=== PATIENT | male | born 1955 | race Native Hawaiian/Other Pacific Islander ===

== ENCOUNTER 2022-11-03 09:15 | Outpatient (CLI) | payer MEDICARE, MEDICAID ==
--- NOTE | 2022-11-03 12:24 | XRAY Report ---
PROCEDURE: Hips 2V BILAT INDICATIONS: HIP PAIN LEFT CHRONIC TECHNIQUE: 2 views of the hips were acquired. COMPARISON: None. FINDINGS: Bones: Mild to moderate bilateral arthrosis. No displaced fracture or dislocation. There are small os sified bodies seen in the superior joint space on the right. No displaced fracture or dislocation. Cee mbosacral degenerative changes also present. Soft tissues: No significant calcifications. IMPRESSION: Mild to moderate arthrosis as above. If there is high concern for further derangement, consider MRI e valuation. Reviewed by: Luciano Douglas MD on 11/03/2022 12:23 PM PDT Approved by: Luciano Douglas MD on 11/03/2022 12:23 PM PDT Station ID: [id number]
== END 2022-11-03 09:30 | disposition home or self-care (01) ==
LOC: DI.N 09:15
PROVIDERS: ATTEND Physician Assistant Medical
DX: M16.0 Bilateral primary osteoarthritis of hip (principal)

== ENCOUNTER 2023-04-02 10:34 | Outpatient (CLI) | payer MEDICARE, MEDICAID ==
[2023-04-02 10:47] LABS: BASOPHILS # (AUTO) 0.1 10^3/uL (0.0-0.1); BASOPHILS % (AUTO) 1.2 %; EOSINOPHILS # (AUTO) 0.1 10^3/uL (0.0-0.7); EOSINOPHILS % (AUTO) 1.5 %; HGB - HEMOGLOBIN 15.6 g/dL (14.0-18.0); LYMPHOCYTES # (AUTO) 1.4 10^3/uL (1.5-3.5); LYMPHOCYTES % (AUTO) 23.9 %; MEAN CORPUSCULAR HEMOGLOBIN 29.7 pg (27.0-31.0); MEAN CORPUSCULAR HGB CONC 33.2 g/dL (32.0-36.0); MEAN CORPUSCULAR VOLUME 89.5 fL (80.0-94.0); MONOCYTES # (AUTO) 0.6 10^3/uL (0.0-1.0); MONOCYTES % (AUTO) 10.5 %; NEUTROPHILS # (AUTO) 3.7 10^3/uL (1.5-6.6); NEUTROPHILS % (AUTO) 62.6 %; PLT - PLATELET COUNT 325 10^3/uL (130-450); RED BLOOD COUNT 5.25 10^6/uL (4.70-6.10); RED CELL DISTRIBUTION WIDTH 13.9 % (12.0-15.0); WHITE BLOOD COUNT 5.9 x10^3/uL (4.8-10.8)
[2023-04-02 11:04] LABS: ALBUMIN 4.6 g/dL (3.2-5.5); ALBUMIN/GLOBULIN RATIO 1.4 (1.0-2.2); ALKALINE PHOSPHATASE 64 IU/L (42-121); ALT ALANINE AMINOTRANSFERASE 17 IU/L (10-60); AST ASPARTATE AMINOTRANSFERASE 18 IU/L (10-42); BILIRUBIN,TOTAL 0.5 mg/dL (0.2-1.0); BUN - BLOOD UREA NITROGEN 20 mg/dL (6-20); CALCIUM 9.9 mg/dL (8.5-10.3); CARBON DIOXIDE - CO2 32 mmol/L (21-32); CHLORIDE 99 mmol/L (101-111); CHOL/HDL RATIO 5.8 (<5.0); CHOLESTEROL 325 mg/dL; CREATININE 0.9 mg/dL (0.6-1.3); GFR - MDRD 85 (>89); GLUCOSE 97 mg/dL (74-104); HDL CHOLESTEROL 56 mg/dL; LDL CHOLESTEROL,CALCULATED 227 mg/dL; LDL/HDL RATIO 4.1 (<3.6); POTASSIUM 4.5 mmol/L (3.5-4.5); SODIUM 135 mmol/L (135-145); TRIGLYCERIDES 212 mg/dL (48-352); VLDL CHOLESTEROL 42 mg/dL
[2023-04-02 11:44] LABS: THYROID STIMULATING HORMONE 58.19 uIU/mL (0.34-5.60)
--- NOTE | 2023-04-02 19:20 | XRAY Report ---
PROCEDURE: Knee 4 View RT INDICATIONS: KNEE PAIN RIGHT,HIP PAIN LEFT TECHNIQUE: 4 views of the knee(s) were acquired. COMPARISON: None. FINDINGS: Bones: Single screw transfixing the proximal tibial metadiaphysis is intact with no perihardware tam ency to suggest hardware loosening. Alignment is anatomic. Mild tricompartmental joint space narrowin g and juxta-articular osteophytosis. Chondrocalcinosis in the lateral compartment. No fractures or di slocations. No suspicious bony lesions. Limited AP view of the left knee demonstrate mild medial compartment joint space narrowing and questi onable chondrocalcinosis. Soft tissues: No knee joint effusion. No suspicious soft tissue calcifications or masses. IMPRESSION: 1. No acute fracture or dislocation. 2. Single screw transfixing the proximal tibial metadiaphysis is intact without complication. 3. Mild tricompartmental osteoarthritis. Lateral compartment chondrocalcinosis. Reviewed by: Veronica Parra MD on 04/02/2023 7:18 PM PDT Approved by: Veronica Parra MD on 04/02/2023 7:18 PM PDT Station ID: [id number]
--- NOTE | 2023-04-02 19:24 | XRAY Report ---
PROCEDURE: Hip w/Pelvis 2-3V LT INDICATIONS: KNEE PAIN RIGHT,HIP PAIN LEFT TECHNIQUE: AP pelvis with lateral view(s) of the left hip(s). COMPARISON: None. Hip radiograph on November 03, 2022 FINDINGS: Bones: No fractures or dislocations. Mild to moderate bilateral hip joint space narrowing and juxta articular osteophytosis. No suspicious bony lesions. Mild degenerative changes of the lower lumbar spine. Soft tissues: No suspicious soft tissue calcifications or masses. IMPRESSION: 1. No acute fracture or dislocation. If there is high clinical suspicion for a radiographically occul t fracture, consider CT or MRI for further evaluation. 2. Mild to moderate bilateral hip osteoarthritis, similar to prior dated November 03, 2022. Reviewed by: Veronica Parra MD on 04/02/2023 7:23 PM PDT Approved by: Veronica Parra MD on 04/02/2023 7:23 PM PDT Station ID: [id number]
== END 2023-04-02 10:35 | disposition home or self-care (01) ==
LOC: DI 10:34
PROVIDERS: ATTEND Physician Assistant
DX: M16.0 Bilateral primary osteoarthritis of hip (principal); M17.11 Unilateral primary osteoarthritis, right knee; Z51.81 Encounter for therapeutic drug level monitoring; R03.0 Elevated blood-pressure reading, without diagnosis of hypertension; Z12.5 Encounter for screening for malignant neoplasm of prostate
CPT/HCPCS: 36415; 73502; 73564; 80053; 80061; 84439; 84443; 85025; G0103; 83721; 84153

== ENCOUNTER 2023-04-15 10:52 | Outpatient (CLI) | payer MEDICARE, MEDICAID ==
--- NOTE | 2023-04-15 19:55 | CT Report ---
PROCEDURE: Low Dose Lung Cancer Screen INDICATIONS: NICOTINE DEPENDENCE TECHNIQUE: A CT scan of the chest was performed. Intravenous contrast media was not administered. Images were re corded and evaluated at appropriate window settings. Reformats: axial MIP of the chest, coronal and s agittal. For radiation dose reduction, the following was used: automated exposure control, adjustment of mA and/or kV according to patient size. COMPARISON: None. FINDINGS: Image quality: Excellent. Prior cancer history: Unsure. Lungs and pleura: No pleural effusions. No pneumothorax. No consolidation. Right upper lobe 2 mm manuel id pulmonary nodule (3/102, MIP image 53). Mediastinum: Heart size is normal. No pericardial effusion. No large vessel abnormality. No mediastin al adenopathy by size criteria. One vessel coronary artery calcifications. Chest wall and lower neck: Thyroid is unremarkable. No axillary or supraclavicular adenopathy by size . Bones: No aggressive osseous abnormality. Upper Abdomen: Unremarkable. IMPRESSION: Lung RAD: 2 - Benign. Recommendation: Continue annual screening in 12 Months with LDCT Non-Lung Significant Findings: None. Reviewed by: Patricia Koenig MD on 04/15/2023 7:53 PM PST Approved by: Patricia Koenig MD on 04/15/2023 7:53 PM PST Station ID: [id number]
== END 2023-04-15 10:53 | disposition home or self-care (01) ==
LOC: DI 10:52
PROVIDERS: ATTEND Physician Assistant
DX: Z12.2 Encounter for screening for malignant neoplasm of respiratory organs (principal); F17.200 Nicotine dependence, unspecified, uncomplicated; R91.1 Solitary pulmonary nodule

== ENCOUNTER 2024-02-18 09:14 | Outpatient (CLI) | payer MEDICARE, MEDICAID ==
--- NOTE | 2024-02-18 23:42 | MRI Report ---
PROCEDURE: Shoulder LT WO INDICATIONS: L SHOULDER PAIN TECHNIQUE: Noncontrast oblique coronal T2 fast spin echo with fat saturation, oblique sagittal T1 spin echo and T2 fast spin echo with fat saturation, axial T1 spin echo and T2 fast spin echo with fat saturation t hrough the shoulder. COMPARISON: None. FINDINGS: Image quality: Excellent; note that there is susceptibility artifact in the soft tissues and at the h umeral head secondary to prior rotator cuff repair and possible lung of the biceps tenodesis. This sl ightly limits evaluation. Bones: Insertional cysts at the subscapularis attachment along the anteromedial humeral head (4/14). The bone marrow signal is otherwise normal. There is no acute fracture or dislocation. Acromioclavicular joint: Mild osteoarthritis. There is a type 2 acromion with a tiny marginal subacro mial spur (01/11). Glenohumeral joint: Mild osteoarthritis There is no significant joint effusion. Labrum: Circumferential blunting, with focal thickening of the anterior labrum at the superior and in ferior aspects. There is also cortical irregularity at the anteroinferior portion of the glenoid (5/1 5) which may be posttraumatic or secondary to osteoarthritis. Cartilage: Mild diffuse thinning of the glenohumeral articular cartilage. Subacromial-subdeltoid bursa: There is a moderate amount of fluid in the subacromial-subdeltoid bursa . Rotator cuff: There is a near full-thickness, partial width, articular sided tear of the supraspinatu s at the anterior footprint through which fluid is likely decompressing into the subacromial-subdelto id space (12/12). There is moderate supraspinatus tendinosis and additional partial width, partial-thi ckness, articular sided tearing at the proximal footprint (12/12). There is mild bursal sided fraying of the infraspinatus tendon at the insertion with a partial width, partial-thickness, bursal sided te ar (9/6; /). There is mild infraspinatus tendinosis. 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 The teres minor tendon is intac t. Long head of biceps tendon: There has been likely prior biceps tenodesis. Musculature: There is mild fatty atrophy of the supraspinatus, infraspinatus, and subscapularis. Inferior glenohumeral ligaments/Axillary pouch: The axillary pouch is normal in mildly thickened with low signal. Coracoclavicular and coracoacromial ligaments: The coracoclavicular and coracoacromial ligaments are normal. Other: No other acute abnormality IMPRESSION: 1.Susceptibility artifact and lack of prior imaging limits evaluation to some extent. 2.Near full-thickness tearing of the supraspinatus at the anterior footprint, with likely decompressi on of joint fluid into the subacromial-subdeltoid bursa, superimposed on moderate tendinosis and mild muscle atrophy. 3.Partial width, partial-thickness, bursal sided tear of the infraspinatus insertional fibers, superi mposed on mild tendinosis and mild atrophy. 4.Delaminating tear within the cranial subscapularis fibers, superimposed on moderate tendinosis and mild muscle atrophy. 5.Likely prior biceps tenodesis. 6.Mild glenohumeral and acromioclavicular osteoarthritis. Reviewed by: Sravan Alcantar MD on 02/18/2024 11:41 PM PDT Approved by: Sravan Alcantar MD on 02/18/2024 11:41 PM PDT Station ID: [id number]
== END 2024-02-18 09:15 | disposition home or self-care (01) ==
LOC: DI 09:14
PROVIDERS: ATTEND Orthopaedic Surgery
DX: M75.112 Incomplete rotator cuff tear or rupture of left shoulder, not specified as traumatic (principal); M19.012 Primary osteoarthritis, left shoulder; M62.512 Muscle wasting and atrophy, not elsewhere classified, left shoulder